=== PATIENT | female | born 1945 | race Caucasian/White ===

== ENCOUNTER 2021-08-26 12:12 | Emergency (ER) | payer MEDICARE | END 2021-08-26 15:15 | disposition home or self-care (01) | LOC: ER1 12:12 | DX: U07.1 COVID-19 (principal); F17.200 Nicotine dependence, unspecified, uncomplicated; R05.3 Chronic cough | CPT/HCPCS: 71045; 99283 ==

== ENCOUNTER → 2022-03-14 | Outpatient (CLI) | payer MEDICARE | LOC: MAMO 14:53 | DX: Z12.31 Encounter for screening mammogram for malignant neoplasm of breast (principal); Z78.0 Asymptomatic menopausal state | CPT/HCPCS: 77063; 77067 ==

== ENCOUNTER → 2022-04-01 | Outpatient (CLI) | payer MEDICARE | LOC: KOH-I 08:30 | DX: F17.210 Nicotine dependence, cigarettes, uncomplicated (principal); R91.8 Other nonspecific abnormal finding of lung field; K80.20 Calculus of gallbladder without cholecystitis without obstruction; R93.2 Abnormal findings on diagnostic imaging of liver and biliary tract | CPT/HCPCS: 71271 ==

== ENCOUNTER → 2022-04-29 | Outpatient (CLI) | payer MEDICARE | LOC: EXRD 09:00 | DX: K80.20 Calculus of gallbladder without cholecystitis without obstruction (principal); K76.9 Liver disease, unspecified; K83.8 Other specified diseases of biliary tract | CPT/HCPCS: 76705 ==